=== PATIENT | male | born 1970 | race Caucasian/White ===

== ENCOUNTER 2025-02-17 17:48 | Emergency (ER) | payer OTHER, SELFPAY ==
[2025-02-17] VITALS (40 sets, daily range): BP systolic 127–168; BP diastolic 76–104; PULSE 68–126; RESP 11–30; TEMP 36.5–37.2; O2SAT 93–100
--- NOTE | ~2025-02-17 | CT_ITS ---
EXAMINATION: CT facial & cervical spine wo COMPARISON: None HISTORY: possible abscess TECHNIQUE: Axial images were obtained without IV contrast. Sagittal, coronal reconstruction images were obtained from the axial views. CT scan performed using dose optimization techniques including the following automated exposure control; adjustment of mA and/or kV; use of iterative reconstruction technique. Automatic exposure control was used to reduce radiation dose. Permanent radiation dose record is archived to PACS. FINDINGS: CT facial bones: The nasal bones are intact. The anterior maxillary sinus wetzel and zygomatic arches are intact. The temporomandibular joints are intact. Orbital floors and medial and orbits are intact. Minimal to moderate ethmoidal and maxillary sinusitis. There is no retrobulbar hemorrhage or preseptal soft tissue swelling CT FACIAL BONES: The soft tissues are unremarkable. The lung apices are unremarkable. There is asymmetric enlargement of the right submandibular gland with prominent right paranasal submandibular lymph nodes noted, gross calculus in the submandibular that is not appreciated. There are some enlarged submental lymph nodes also noted the largest 1.1 x 1.2 cm. There is no gross dental abscess identified. No fracture or subluxation. The vertebral heights and disc heights are intact. IMPRESSION: No acute fracture identified. Enlarged right submandibular gland with prominent submental and submandibular lymph nodes possibly infectious in nature. No gross abscess or calculus identified. Follow-up recommended to assess resolution. Reviewed, dictated and finalized at location A. IMPRESSION: No acute fracture identified. Enlarged right submandibular gland wi th prominent submental and submandibular lymph nodes possibly infectious in douglas ure. No gross abscess or calculus identified. Follow-up recommended to assess r esolution.
--- OUTSIDE RECORDS SUMMARY | 2025-02-17 16:45 | XMS_ITS | Encounter Summary ---
Author Organization [facility] Address [address] [place] [id number] Care Team Providers Care Insurance Billing Specialist Name Role Phone Tyra Lopez NP Primary Care Provid er Reason for Visit * Reason Comments Dental Pain Oral pain after dent al visit, root canal needed. 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 Gender Identity Not on file Sexual Orientation Not on file documented as of this encounter Last Filed Vital Signs Vital Sign Reading Time Taken Comments Blood Pressure 139/90 02/17/2025 4:38 PM CDT Pulse 127 02/17/2025 4:57 PM CDT Temperature 36.6 C (97.8 F) 02/17/2025 4:38 PM CDT Respiratory Rate 20 02/17/2025 4:38 PM CDT Oxygen Saturation 98% 02/17/2025 4:38 PM CDT Inhaled Oxygen Concentration - - Weight 124.3 kg (274 lb) 02/17/2025 4:38 PM CDT Height - - Body Mass Index - - documented in this encounter Plan of Treatment Not on file documented as of this encounter Visit Diagnoses Diagnosis Dental abscess- Primary Periapical abscess without sinus Tachycardia Unspecified tachycardia documented in this encounter Historical Medications * This list may reflect changes made after this encounter. clindamycin (CLEOCIN) 300 mg capsule Take by mouth 3 (three) times a day levothyroxine (SYNTHROID) 125 mcg tablet Take 1 tablet (125 mcg total) by mouth daily before breakfast 07/17/2015 added in this encounter Care Teams Insurance Billing Specialist Relationship Specialty Start Date End Date Tyra Lopez NP [facility] [place] [address] PCP - General Nurse Practitioner 02/17/25 documented as of this encounter
--- NOTE | 2025-02-17 18:50 | ECG_ITS ---
Test Date: 2025-02-17 19:01:07 Measurements Intervals [place] Rate: 119 P: -1 NC: 114 QRS: 35 QRSD: 102 T: 14 QT: 343 QTc: 483 Interpretive Statements SINUS TACHYCARDIA WITH SHORT NC INTERVAL INCOMPLETE RIGHT BUNDLE BRANCH BLOCK [90+ ms QRS DURATION, TERMINAL R IN V1/V2, 40+ ms S IN I/aVL/V4/V5/V6] NONSPECIFIC ST ABNORMALITY ABNORMAL ECG No previous ECG available for comparison Electronically Signed On 02-18-2025 09:40:00 CDT by Ishan Haider M.D.
[2025-02-17] MEDS: SODIUM CHLORIDE 0.9% IV 1,000 ML 999 ML IV CONT (19:08)
[2025-02-17 19:15] LABS: Hematocrit 44.9 % (42.0-52.0); Hemoglobin 15.5 g/dL (14.0-18.0); Immature Granulocyte Percent A 0.6 % (0-0.5); Lymphocytes Absolute Auto 1.74 K/mm3 (0.9-3.2); Mean Corpuscular HGB Conc 34.5 g/dl (32-36); Mean Corpuscular Hemoglobin 31.0 pg (26-34); Mean Corpuscular Volume 89.8 fl (80-100); Nucleated Red Blood Cells Absolute Auto 0.000 K/mm3 (0.0-0.012); Nucleated Red Blood Cells Perc 0.0 % (0.0-0.2); Platelet Count Result 279 k/mm3 (150-375); Red Blood Count 5.00 M/mm3 (4.6-6.20); White Blood Count 11.3 K/mm3 (4.5-10.0)
[2025-02-17 19:25] LABS: Alanine Aminotransferase 30 U/L (6-50); Albumin Level 4.6 g/dL (3.5-5.1); Alkaline Phosphatase 61 U/L (38-126); Anion Gap 15 mmol/L (4-12); Aspartate Amino Transferase 67 U/L (17-59); Bilirubin,Total 3.6 mg/dL (0.2-1.3); Blood Urea Nitrogen 13 mg/dL (9-20); Calcium 9.2 mg/dL (8.4-10.2); Carbon Dioxide 22 mmol/L (22-30); Chloride 99 mmol/L (98-107); Estimated CRCL calculation 104 ml/min; Estimated Glomerular Filt Rate > 60; Glucose 92 mg/dL (65-110); Potassium 4.2 mmol/L (3.4-5.0); Sodium 136 mmol/L (137-145); Total Protein 8.5 g/dL (6.3-8.2)
--- OUTSIDE RECORDS SUMMARY | 2025-02-17 19:40 | XMS_ITS ---
Author Organization Unknown ENCOUNTERS Encounter Performer Location Date Diagnosis Diagnosis Status Pre Admit [place] [id number] [place] [address] [id number] Emergency [facility] [address] [place] [id number] *Note: Encounters from your own facility or health system may be excluded. Allergies, Adverse Reactions, Alerts Allergen Type Severity Identification Date Medications Name Date Quantity Days Supplied GPI Number
--- OUTSIDE RECORDS SUMMARY | 2025-02-17 19:40 | XMS_ITS | Clinical Summary ---
Author Organization [facility] Address [address] [facility] [place] [address] Care Team Providers Care Possum Trapper Name Role Phone Tyra Lopez APRN-ALEKSANDRA Primary Care P sharla Source Comments [facility],non-owned Affiliates and Associated Physician Practices is amultiple site organization consisting of ambulatory clinics and hospital sitesin [place], [place], [place] and [place]. This disclosure is being madepursuant to the Care Everywhere program and may not contain all information available regarding this patient. Last updated 18.[facility] Social History Tobacco Use Types Packs/Day Years Used Date Smoking Tobacco: Never Assessed Sex and Gender Information Value Date Recorded Sex Assigned at Not on file Legal Sex Male 11:37 AM CDT Gender Identity Not on file Sexual Orientation Not on file Plan of Treatment Health Maintenance Due Date Last Done Comments COLOGUARD (AGES 45-75) - COL ON CA SCREENING 1969 COLON MONITORING 1969 COLONOSCOPY - COLON CA SCREENING 1969 CT COLONOGRAPHY - COLON CA SCREENING 1969 Colorectal Cancer Screening 1969 FIT - COLON CA SCREENING 1969 FLEX SIG - COLON CA SCREENING 1969 LIPID TESTING 1969 HIV SCREENING 1984 HEPATITIS C SCREENING 12/25/1987 DTAP/TDAP/TD VACCINES (1 - Tdap) 1988 HEPATITIS B VACCINE (1 of 3 - 19+ 3-dose series) 1988 PNEUMOCOCCAL VACCINE 50+ (1 of 1 - PCV) 12/30/2019 ZOSTER VACCINE (1 of 2) 12/30/2019 DEPRESSION SCREENING 06/07/2024 COVID-19 VACCINE ( - 2023-2 5 season) 2025 INFLUENZA VACCINE (#1) 2025 HIB VACCINE Aged Out No longer eligi ble based on patient's age to complete this topic HPV VACCINE Aged Out No longer eligi ble based on patient's age to complete this topic MENINGOCOCCAL (Group B) VACC INE SHARED DECISION-MAKING Aged Out No longer eligibl e based on patient's age to complete this topic MENINGOCOCCAL GROUPS A/C/Y/W VACCINE Aged Out No longer eligible b ased on patient's age to complete this topic Insurance [facility] Care Teams Possum Trapper Relationship Specialty Start Date End Date Tyra Lopez APRN-ALEKSANDRA [facility] [phone] PCP - General Nurse Practitioner 10/16/24
[2025-02-17] MEDS: SODIUM CHLORIDE 0.9% IV 500 ML 999 ML IV CONT (20:22)
--- NOTE | 2025-02-17 21:04 | ED_ITS ---
HPI - Fever General Chief Complaint: Fever Stated Complaint: potentially sepsis, oral abscess Time Seen by Provider: 02/17/25 19:11 Source: patient Mode of arrival: ambulatory Limitations: no limitations History of Present Illness HPI Narrative: Patient is a 54-year-old male who presents the ED with concern for dental abscess. Patient reports he has been having some pain throughout his left lower 2nd molar, tooth number 31, for the past several days. He saw his dentist on Wednesday and was rx'd clindamycin for possible infection. Told he may need a root canal. He has been taking the antibiotics as prescribed, but denied improvement. He states today, something burst in his mouth and he had a large amount of pus come from the tooth. He states he felt much better after this. Does still have some discomfort, swelling under R mandibular region. Went to an and was sent here for further evaluation due to heart rate being elevated. Denies fevers, difficulty breathing/swallowing. Related Data Allergies Allergy/AdvReac Type Severity Reaction Status Date / Time No Known Allergies Allergy Verified 02/17/25 18:45 Review of Systems 2 Review of Systems: All systems reviewed & are unremarkable except as noted in HPI. All systems reviewed & are unremarkable except as noted in HPI and below Exam 2 Narrative: GENERAL: Well appearing, obese with BMI of 30.9, non-toxic, in no acute distress. HEAD: Normocephalic, atraumatic. ENT: Mild swelling/fullness to R submandibular region w/o focal TTP. Mild TTP surrounding tooth # 31 gumline w/o focal erythema/fluctuance/evidence of abscess. No drainage. No trismus or stridor. Maintaining secretions. RESPIRATORY: Airway patent, respirations nonlabored. CARDIOVASCULAR: Regular rate and rhythm MUSCULOSKELETAL: Moves all extremities. No gross deformities. SKIN: Warm, dry, normal color. NEURO: A&O X3. Speech clear. PSYCHIATRIC: Appropriate mood and affect. Normal interaction. Course Vital Signs Vital signs: Vital Signs Temperature 97.7 F 02/17/25 17:50 Pulse Rate 120 H 02/17/25 17:50 Respiratory Rate 16 02/17/25 17:50 Blood Pressure 137/95 H 02/17/25 17:50 Pulse Oximetry 97 02/17/25 17:50 Oxygen Delivery Room Air 02/17/25 17:50 Temperature 98.9 F 02/17/25 23:58 Pulse Rate 68 02/17/25 23:58 Respiratory Rate 13 02/17/25 23:58 Blood Pressure 127/76 02/17/25 23:58 Pulse Oximetry 98 02/17/25 23:58 Oxygen Delivery Room Air 02/17/25 18:42 MDM - Fever MDM Narrative Medical decision making narrative: Patient presented to ED with concern for dental infection/abscess that spontaneously drained today. Has been on antibiotics for the past several days without improvement. Was sent from urgent care due to tachycardia. Patient was notably tachycardic into the 120s upon arrival. EKG shows sinus tachycardia. Fluids were initiated. Did normalize into the 90s with fluid administration. Patient otherwise afebrile. Vital signs are otherwise stable. No respiratory complaints or signs respiratory distress or airway compromise. CBC with white blood cell count of 11.3. He is not meeting criteria for sepsis. Remainder of basic laboratory studies are otherwise fairly unremarkable. Total bilirubin was mildly elevated to 3.6, patient without any right upper quadrant tenderness or concerns. No previous records to compare to. CT of the soft tissue face/neck obtained showing right-sided submandibular gland swelling, no abscess. No other concerning features. No airway involvement. Discussed lab and imaging findings with patient. He has remained stable throughout ED stay. Again vital signs have completely normalized. Will switch antibiotics to Augmentin to cover for dental infection and sialadenitis. Discussed further management of sialadenitis, including sour candies, warm compresses, gentle massage, of increase fluid hydration. Recommended close follow-up with dentist for further evaluation. Patient feels comfortable going home. Discussed very strict return precautions. Patient in agreement with plan. Discharged in stable condition. Medical Records Attestation: I reviewed the patient's medical records. Lab Data Attestation: I reviewed the patient's lab results. 02/17/25 19:09 02/17/25 19:09 Labs: Lab Results 02/17/25 Range/Units 19:09 WBC 11.3 H (4.5-10.0) K/mm3 RBC 5.00 (4.6-6.20) M/mm3 Hgb 15.5 (14.0-18.0) g/dL Hct 44.9 (42.0-52.0) % MCV 89.8 (80-100) fl MCH 31.0 (26-34) pg MCHC 34.5 (32-36) g/dl RDW 12.1 (11.5-14.5) % Plt Count 279 (150-375) k/mm3 MPV 9.3 (7.4-10.4) fl Immature Gran % (Auto) 0.6 H (0-0.5) % Neut % (Auto) 71.6 (45.5-73.1) % Lymph % (Auto) 15.4 L (18.3-44.2) % [place] % (Auto) 9.7 H (2.6-8.5) % Eos % (Auto) 2.3 (0-4.4) % Baso % (Auto) 0.4 (0.2-1.2) % Lymph # (Auto) 1.74 (0.9-3.2) K/mm3 [place] # (Auto) 1.1 H (0.1-0.6) K/mm3 Eos # (Auto) 0.3 (0-0.3) K/mm3 Baso # (Auto) 0.1 (0.0-0.1) K/mm3 Abs Immat Gran (auto) 0.07 H (0.00-0.031) K/mm3 Absolute Neuts (auto) 8.1 H (1.3-6.7) K/mm3 Absolute Nucleated RBC 0.000 (0.0-0.012) K/mm3 Nucleated RBC % 0.0 (0.0-0.2) % Sodium 136 L (137-145) mmol/L Potassium 4.2 (3.4-5.0) mmol/L Chloride 99 (98-107) mmol/L Carbon Dioxide 22 (22-30) mmol/L Anion Gap 15 H (4-12) mmol/L BUN 13 (9-20) mg/dL Creatinine 0.96 (0.7-1.3) mg/dL Estim Creat Clear Calc 104 ml/min Estimated GFR > 60 (59 - ) Glucose 92 (65-110) mg/dL Calcium 9.2 (8.4-10.2) mg/dL Total Bilirubin 3.6 H (0.2-1.3) mg/dL AST 67 H (17-59) U/L ALT 30 (6-50) U/L Alkaline Phosphatase 61 (38-126) U/L Total Protein 8.5 H (6.3-8.2) g/dL Albumin 4.6 (3.5-5.1) g/dL Imaging Data Attestation: I personally reviewed and interpreted this imaging study as follows: Radiologist's impression: STAT RAD CT facial: Impression: There is enlargement of the right submandibular gland. There are enlarged submental lymph nodes. There are small cervical lymph nodes. No abscess is seen. There is mild paranasal sinus disease. No incidental findings. Cervical spine: Impression: There is straightening of the normal cervical lordosis. No gross bony destruction is seen. No incidental findings. ECG Data EKG #1: Attestation: I personally reviewed and interpreted this ECG as follows: ECG completion date: 02/17/25 ECG completion time: 19:01 EKG Interpretation: tachycardia (119), sinus rhythm, non-specific ST changes, RBBB (incomplete) and other (short OR) Discharge Plan Discharge Clinical Impression: Dental infection, Submandibular gland swelling Patient Disposition: Home Condition: Stable Instructions: Antibiotic Form, Sialoadenitis (ED), Mouth Care (ED) Additional Instructions: Take new antibiotics as prescribed. Recommend eating sour candies frequently to simulate salivation. You may gently massage swelling under jaw. Also recommend warm compresses under jaw. Stay very well hydrated. Follow-up with your dentist and/or primary care doctor for further evaluation. Return to the ED if you experience worsening or severe symptoms, persistent fevers, difficulty breathing or swallowing, unable to keep down food or drink, or any other symptoms of concern. Patient Language: Portuguese Prescriptions: New amoxicillin-pot clavulanate 875-125 mg tablet 1 tablet PO Q12H 7 Days Qty: 14 0RF Follow-up/Referrals: PHYSICIAN NOT ON STAFF,NONSTAFF [Primary Care Provider] Time of Disposition: 23:12
== END 2025-02-17 23:59 | disposition home or self-care (01) ==
PROVIDERS: Emergency Medicine; Emergency Provider Physician Assistant
DX: K04.7 Periapical abscess without sinus (principal); R22.1 Localized swelling, mass and lump, neck; R00.0 Tachycardia, unspecified
CPT/HCPCS: 36415; 70486; 72125; 80053; 85025; 93005; 96360; 96361; 99284; A9270; J7030; J7040